=== PATIENT | female | born 1985 | race Caucasian/White ===

== ENCOUNTER 2016-12-21 11:20 | Emergency (ER) | payer BC, OTHER ==
[~2016-12-21] VITALS: Ht 182.9 cm; Wt 63.5 kg
[2016-12-21] MEDS ORDERED: IBUPROFEN 600600 M1 PO (13:59)
[2016-12-21] MEDS ORDERED: ULTRAM 50MG TAB50 MG PO (13:59)
[2016-12-21] MEDS ORDERED: ONDANSETRON HCL4 M2 PO (13:59)
[2016-12-21] MEDS ORDERED: TIZANIDINE HCL4 MG PO (13:59)
[2016-12-21 14:27] VITALS: BP 102/57
== END 2016-12-21 14:29 | disposition home or self-care (01) ==
LOC: ER 11:20
DX: S16.1XXA Strain of muscle, fascia and tendon at neck level, initial encounter (principal); S39.012A Strain of muscle, fascia and tendon of lower back, initial encounter; F10.99 Alcohol use, unspecified with unspecified alcohol-induced disorder; Z88.0 Allergy status to penicillin; Z88.1 Allergy status to other antibiotic agents; Z88.8 Allergy status to other drugs, medicaments and biological substances; V89.2XXA Person injured in unspecified motor-vehicle accident, traffic, initial encounter; Y93.89 Activity, other specified; Y92.89 Other specified places as the place of occurrence of the external cause; Y99.8 Other external cause status